=== PATIENT | female | born 2005 | race Caucasian/White ===

== ENCOUNTER 2024-04-28 09:35 | Emergency (ER) | payer MEDICAID ==
[~2024-04-28] VITALS: Ht 149.9 cm; Wt 33.1 kg
[2024-04-28 10:37] LABS: Basophils # (auto) 0 10 ^3/uL (0-0.2); Basophils % (auto) 0.2 % (0.0-2.0); Chloride 104 mmol/L (98-107); Eosinophils # (auto) 0 10 ^3/uL (0-0.8); Eosinophils % (auto) 0.5 % (0.0-7.0); Hematocrit 43.7 % (36.0-46.0); Hemoglobin 14.7 g/dL (12.2-16.2); Lymphocytes # (auto) 2.1 10 ^3/uL (0.4-5.4); Lymphocytes % (auto) 32.2 % (10.0-50.0); Mean Corpuscular Hemoglobin 29.5 pg (28.0-32.0); Mean Corpuscular Hgb Conc. 33.6 g/dL (32.0-36.0); Mean Corpuscular Volume 87.9 fL (80.0-100.0); Monocytes # (auto) 0.6 10 ^3/uL (0-1.3); Monocytes % (auto) 8.4 % (0.0-12.0); Neutrophils # (auto) 3.9 10 ^3/uL (1.6-8.6); Neutrophils % (auto) 58.7 % (37.0-80.0); Nucleated Red Blood Cells % 0.1 %; Potassium 3.4 mmol/L (3.5-5.1); Red Blood Cells 4.98 10^6/uL (4.0-5.20); Red Cell Distribution Width 13.3 % (11.8-14.3); Sodium 139 mmol/L (136-145); White Blood Cell 6.6 10^3/uL (4.4-10.8)
[2024-04-28 10:38] LABS: Anion Gap 8 (5-15); Carbon Dioxide 27 mmol/L (20-30)
[2024-04-28 10:39] LABS: Calcium 10.4 mg/dL (8.5-10.1)
[2024-04-28 10:43] LABS: BUN/Creatinine Ratio 16.7 (10.0-20.0); Blood Urea Nitrogen 13 mg/dL (9-23); Glucose 78 mg/dL (74-106)
[2024-04-28 10:44] LABS: Magnesium 1.8 mg/dL (1.6-2.6)
[2024-04-28] MEDS: SODIUM CHLORIDE 0.9% 1,000 ML IV ONE (11:54)
[2024-04-28 11:57] LABS: Amphetamine Screen, Urine Neg (NEGATIVE)
[2024-04-28 11:58] LABS: Barbiturate Scree,Urine Neg (NEGATIVE); Benzodiazephine Screen, Urine Neg (NEGATIVE); Cannabinoid Screen, Urine Pos (NEGATIVE); Cocaine Screen, Urine Neg (NEGATIVE); Opiate Scree,Urine Neg (NEGATIVE); Phencyclidine Screen, Urine Neg (NEGATIVE)
[2024-04-28 13:28] VITALS: BP 131/73; PULSE 81; RESP 16; TEMP 98.1; O2SAT 100
== END 2024-04-28 13:29 | disposition home or self-care (01) ==
LOC: ER 09:35
DX: R00.2 Palpitations (principal)
CPT/HCPCS: 36415; 71046; 80048; 80307; 81025; 83735; 84484; 85025; 93005; 96360; 99285; J7030